=== PATIENT | male | born 1980 | race Caucasian/White ===

== ENCOUNTER 2021-02-22 16:11 | Emergency (ER) | payer OTHER ==
[2021-02-22 17:03] LABS: AMPHETAMINES NEGATIVE (NEGATIVE); BARBITURATES NEGATIVE (NEGATIVE); ECSTASY (MDMA) NEGATIVE (NEGATIVE); MARIJUANA (THC) NEGATIVE (NEGATIVE); METHADONE NEGATIVE (NEGATIVE); OPIATES NEGATIVE (NEGATIVE); OXYCODONE NEGATIVE (NEGATIVE)
== END 2021-02-22 22:22 | disposition other institution (70) ==
LOC: FER 16:11
PROVIDERS: Internal Medicine
DX: R45.851 Suicidal ideations (principal); R44.0 Auditory hallucinations; Z20.822 Contact with and (suspected) exposure to COVID-19
CPT/HCPCS: 36415; 80305; 99285; G0480; U0002